=== PATIENT | male | born 1940 ===

== ENCOUNTER 2017-12-09 06:45 | Day surgery (SDC) | payer MEDICARE ==
--- NOTE | 2017-12-05 19:15 | Pre-op HX & Phy Repo 2 SIG ---
DATE OF ADMISSION: 12/09/2017 DATE OF SURGERY: 12/09/2017 PREOPERATIVE DIAGNOSIS: Dense nonclearing vitreous hemorrhage, left eye. BRIEF NOTE: This is the first [place] retinal admission for this patient, who is a very kind 77-year-old man with a long history of diabetic retinopathy. He complained of loss of vision in the left eye over a month ago and was found to have a very dense vitreous hemorrhage, which has failed to clear. He is admitted for surgery. PAST OCULAR HISTORY: Remarkable for cataract surgery done in both eyes previously. He also has a history of prior panretinal laser. A single Avastin injection was done in the left. PAST MEDICAL HISTORY: Remarkable for diabetes and hypertension as well as elevated cholesterol, diagnosed around 2001. MEDICATIONS: He is maintained on oral medications for these conditions. ALLERGIES: He has no allergies. PHYSICAL EXAMINATION: Best vision at the time of admission was 20/80, -2 in the right eye and light perception with projection in the left. The pressures were 19 and 16. The anterior segments were quiet in either eye. Posterior chamber lenses were seen bilaterally with no rubeosis. Fundus exam of the right eye showed mild pallor of the optic nerve. There was widespread panretinal laser photocoagulation. Mild diabetic maculopathy was noted. The left fundus showed a very dense vitreous hemorrhage. Ultrasonography showed the retina to be flat. General physical examination be done by Dr. Mcfarland. ASSESSMENT: Vitreous hemorrhage, left eye. PLAN: The plan is to perform a pars plana vitrectomy with membrane dissection, endolaser, and Avastin injection on the left. The risks and benefits of surgery gone over with the patient with potential infection, hemorrhage, glaucoma, remote possibility of loss of the eye. The risk of anesthesia was discussed. The patient understands and consents to the surgery, which will be performed on Saturday. Alex Farmer M.D. DR: JAZMYN JOB#: [id number] CC: ALMA
[2017-12-09] VITALS (9 sets, daily range): BP systolic 104–177; BP diastolic 52–84
[~2017-12-09] VITALS: Ht 162.6 cm; Wt 81.6 kg
--- NOTE | 2017-12-09 06:26 | Pre-Procedure Note/Attestation ---
Pre-Procedure Note/Attestation Complete Prior to Procedure Planned Procedure: left Procedure Narrative: PPV, membrane peel, endolaser, Kenalog injection, Avastin injection Left eye Indications for Procedure Pre-Operative Diagnosis: Dense vitreous hemorrhage Left eye Attestation I attest that I discussed the nature of the procedure; its benefits; risks and complications; and alternatives (and the risks and benefits of such alternatives ), prior to the procedure, with the patient (or the patient's legal outbound telemarketing representative). I attest that, if there was a reasonable possibility of needing a blood transfusion, the patient (or the patient's legal outbound telemarketing representative) was given the [facility] standardized written summary, pursuant to the Casey Rae Blood Safety Act ([place] Health and Safety Code # 1645, as amended). I attest that I re-evaluated the patient just prior to the surgery and that there has been no change in the patient's H&P, except as documented below: TJ CASTRO Dec 09, 2017 06:26
[~2017-12-09 06:45] MED LIST: Alfentanil 2ml Inj ONE; Norco 5mg/325mg tab ORAL PRN; Propofol 200mg/20ml IV ONE
[2017-12-09] MEDS: Phenylephrine 2.5% Op 2ml Soln LEFT EYE SCH ×3 (07:11→07:24)
[2017-12-09] MEDS: Flurbiprofen 0.03% Opth Sol 2.5ml LEFT EYE SCH ×3 (07:11→07:24)
[2017-12-09] MEDS: Cyclopentolate 1% Opth Sol 2ml LEFT EYE SCH ×3 (07:11→07:24)
[2017-12-09] MEDS: Vigamox Opth Soln 3ml LEFT EYE SCH ×3 (07:11→07:24)
[2017-12-09] MEDS ORDERED: EPINEPHrine 1mg/1ml Amp ONE (07:13)
[2017-12-09] MEDS ORDERED: Pred Forte 1% Opth Susp 1ml ONE (07:13)
[2017-12-09] MEDS ORDERED: Dexamethasone 4mg/ml vial ONE (07:13)
[2017-12-09] MEDS ORDERED: Kenalog-10 5ml Inj ONE (07:13)
[2017-12-09] MEDS ORDERED: Lidocaine 2% MPF 5ml Vial INJ ONE (07:13)
[2017-12-09] MEDS ORDERED: Kenalog-40 1ml Vial ONE (07:13)
[2017-12-09] MEDS ORDERED: BSS 15ml BTL ONE (07:14)
[2017-12-09] MEDS ORDERED: Povidone-Iodine 5% opth solution ONE (07:14)
[2017-12-09] MEDS ORDERED: BSS 500ml btl ONE (07:14)
[2017-12-09] MEDS ORDERED: Tetracaine 0.5% Opth 4ml Soln ONE (07:14)
[2017-12-09] MEDS ORDERED: Sodium Hyaluronate 10 mg/ml 0.85ml ONE (07:15)
[2017-12-09] MEDS ORDERED: Bupivacaine 0.75% 30ml vial INJ ONE (07:15)
[2017-12-09] MEDS ORDERED: TERAZOSIN HCL1 MG ORAL (07:21)
[2017-12-09] MEDS ORDERED: NAPROXEN250 M1 PO (07:21)
[2017-12-09] MEDS ORDERED: BENICAR5 MG ORAL (07:21)
[2017-12-09] MEDS ORDERED: CELEBREX200 MG ORAL (07:21)
[2017-12-09] MEDS ORDERED: PENTOXIFYLLINE400 MG ORAL (07:21)
[2017-12-09] MEDS ORDERED: Avastin 10mg Inj IVITRE SCH (07:30)
[2017-12-09 07:31] LABS: BASOPHILS % (AUTO) 1.3 % (0.0-2.0); EOSINOPHILS % (AUTO) 2.5 % (0.0-3.0); HEMATOCRIT 42.9 % (42.0-52.0); LYMPHOCYTES % (AUTO) 23.8 % (20.0-45.0); MEAN CORPUSCULAR VOLUME 93 FL (80-99); MONOCYTES % (AUTO) 7.9 % (1.0-10.0); NEUTROPHILS % (AUTO) 64.5 % (45.0-75.0); PLATELET COUNT 153 K/UL (150-450); RED CELL DISTRIBUTION WIDTH 12.1 % (11.6-14.8)
[2017-12-09] MEDS ORDERED: NOVOLOG100 UNIT/3 SUBQ ×2 (07:33)
[2017-12-09] MEDS ORDERED: Maxitrol Opth Oint 3.5gm ONE (07:36)
[2017-12-09] MEDS ORDERED: Midazolam 2mg/2ml Inj ONE (07:50)
[2017-12-09 07:56] LABS: ANION GAP 8 mmol/L (5-15); BLOOD UREA NITROGEN 22 mg/dL (7-18); CARBON DIOXIDE 25 MMOL/L (21-32); CHLORIDE 102 MMOL/L (98-107); CREATININE 1.3 MG/DL (0.55-1.30); POTASSIUM 4.3 MMOL/L (3.5-5.1); SODIUM 135 MMOL/L (136-145)
[2017-12-09] MEDS ORDERED: LR 1000ml 1,000 ML IVLG SCH (07:58)
--- NOTE | 2017-12-09 07:59 | Anethesia Preoperative Eval ---
Anesthesia Pre-op PMH/ROS General Date of Evaluation: Dec 09, 2017 Time of Evaluation: 07:51 Anesthesiologist: Marzena ASA Score: ASA 3 Mallampati Score Class I : Soft palate, uvula, fauces, pillars visible Class II: Soft palate, uvula, fauces visible Class III: Soft palate, base of uvula visible Class IV: Only hard plate visible Mallampati Classification: Class III Surgeon: Marleny Diagnosis: Vitreous Hemorrhage OS Surgical Procedure: Vitrectomy OS Anesthesia History: none Family History: no anesthesia problems Allergies: Coded Allergies: No Known Allergies (Unverified , 12/06/17) Medications: see eMAR Past Medical History Cardiovascular: Reports: HTN Endocrine: Reports: DM HEENT: Reports: cataract (L), cataract (R) Other: obesity - BMI 32 Anesthesia Pre-op Phys. Exam Physician Exam Last Vital Signs Date Time Temp Pulse Resp B/P (MAP) Pulse Ox O2 Delivery O2 Flow Rate FiO2 12/09/17 07:23 97.6 81 20 177/84 99 Room Air 97.6 Constitutional: NAD Neurologic: CN 2-12 intact Cardiovascular: RRR Respiratory: CTA Gastrointestinal: S/NT/ND Airway Exam Mallampati Score: Class III MO: limited ROM: limited Teeth: missing, intact Anesthesia Pre-op A/P Labs Hematology Test 12/09/17 07:05 White Blood Count 7.0 K/UL (4.8-10.8) Red Blood Count 4.60 M/UL (4.70-6.10) L Hemoglobin 15.0 G/DL (14.2-18.0) Hematocrit 42.9 % (42.0-52.0) Mean Corpuscular Volume 93 FL (80-99) Mean Corpuscular Hemoglobin 32.7 PG (27.0-31.0) H Mean Corpuscular Hemoglobin Concent 35.1 G/DL (32.0-36.0) Red Cell Distribution Width 12.1 % (11.6-14.8) Platelet Count 153 K/UL (150-450) Mean Platelet Volume 7.7 FL (6.5-10.1) Neutrophils (%) (Auto) 64.5 % (45.0-75.0) Lymphocytes (%) (Auto) 23.8 % (20.0-45.0) Monocytes (%) (Auto) 7.9 % (1.0-10.0) Eosinophils (%) (Auto) 2.5 % (0.0-3.0) Basophils (%) (Auto) 1.3 % (0.0-2.0) Chemistry Test 12/09/17 07:05 Sodium Level Pending Potassium Level Pending Chloride Level Pending Carbon Dioxide Level Pending Blood Urea Nitrogen Pending Creatinine Pending Estimat Glomerular Filtration Rate Pending Glucose Level Pending Calcium Level Pending Risk Assessment & Plan Assessment: ASA 3 Plan: GA Status Change Before Surgery: Francesco Steele MD Dec 09, 2017 07:59
[2017-12-09] MEDS ORDERED: Hydromorphone 0.5mg/0.5ml inj IVP PRN (08:00)
[2017-12-09] MEDS ORDERED: LORazepam Inj 2mg/ml 1ml IV PRN (08:00)
[2017-12-09] MEDS ORDERED: Metoclopramide 10mg/2ml Inj IVP PRN (08:00)
[2017-12-09] MEDS ORDERED: Sterile Water For Irrig 2000ml IRRIG ONE (08:00)
[2017-12-09] MEDS ORDERED: Labetalol 5mg/ml 20ml vial IV PRN (08:00)
[2017-12-09] MEDS ORDERED: oxyCODONE HCL/Acetaminophen 5/325mg ORAL PRN (08:00)
[2017-12-09] MEDS ORDERED: Atropine Inj 1mg/10ml Syr IV PRN (08:00)
[2017-12-09] MEDS ORDERED: HYDROcodone/Acetamin 7.5/325 tab ORAL PRN (08:00)
[2017-12-09] MEDS ORDERED: NS Irrig 1000ml ONE (08:00)
[2017-12-09] MEDS ORDERED: fentaNYL 100 mcg/2 mL IV PRN (08:00)
[2017-12-09] MEDS ORDERED: LR 1000ml ONE (08:00)
[2017-12-09] MEDS ORDERED: Midazolam 2mg/2ml Inj IVP PRN (08:00)
[2017-12-09] MEDS ORDERED: Norco 5mg/325mg tab ORAL PRN (08:00)
[2017-12-09] MEDS ORDERED: DiphenhydrAMINE 50mg/ml Inj IVP PRN (08:00)
--- NOTE | 2017-12-09 08:23 | Immediate Post-Op Evaluation ---
Immediate Post-Op Evalulation Immediate Post-Op Evalulation Procedure: Vitrectomy OS Date of Evaluation: Dec 09, 2017 Time of Evaluation: 09:12 IV Fluids: 500 LR Blood Products: 0 Estimated Blood Loss: 1 Urinary Output: 0 Blood Pressure Systolic: 143 Blood Pressure Diastolic: 81 Pulse Rate: 69 Respiratory Rate: 16 O2 Sat by Pulse Oximetry: 99 Temperature (Fahrenheit): 98.4 Pain Score (1-10): 1 Nausea: No Vomiting: No Complications 0 Patient Status: awake, reacts, patent, none Hydration Status: adequate Francesco Ivan MD Dec 09, 2017 08:23
--- NOTE | 2017-12-09 08:25 | 48 Hour Post Anesthesia Eval ---
Post Anesthesia Evaluation Procedure: Vitrectomy OS Date of Evaluation: Dec 09, 2017 Time of Evaluation: 11:22 Blood Pressure Systolic: 141 0: 76 Pulse Rate: 67 Respiratory Rate: 18 Temperature (Fahrenheit): 98.4 O2 Sat by Pulse Oximetry: 100 Airway: patent Nausea: No Vomiting: No Pain Intensity: 1 Hydration Status: adequate Cardiopulmonary Status: Stable Mental Status/LOC: patient returned to baseline Follow-up Care/Observations: 0 Post-Anesthesia Complications: 0 Follow-up care needed: ready to discharge Francesco Ivan MD Dec 09, 2017 08:25
--- NOTE | 2017-12-09 08:59 | Brief Operative Note ---
Immediate Post Operative Note Operative Note Chief Complaint: Clouds in vision Left eye Pre-op Diagnosis: Dense vitreous hemorrhage Left eye Procedure: PPV, Endolaser 1027spots, Avastin injection 1.25mg Left eye Post-op Diagnosis: same as pre-op Surgeon: zachariah Anesthesiologist: Marzena Anesthesia: MAC Specimen: none Complications: none Condition: stable Fluids: Per Anesthesia Estimated Blood Loss: none Drains: none Implant(s) used?: No TJ CASTRO Dec 09, 2017 08:59
[2017-12-09] MEDS ORDERED: Pred Forte 1% Opth Susp 1ml LEFT EYE SCH (10:00)
--- NOTE | 2017-12-09 12:45 | Operative Note - Dictated ---
DATE OF OPERATION: 12/09/2017 PREOPERATIVE DIAGNOSIS: Dense vitreous hemorrhage, left eye. POSTOPERATIVE DIAGNOSIS: Dense vitreous hemorrhage, left eye. PROCEDURES: 1. Pars plana vitrectomy. 2. Endolaser. 3. Avastin injection, left eye. SURGEON: Alex Farmer MD MUSIC WRITER: None. ANESTHESIA: Local with sedation. ANESTHESIOLOGIST: Francesco Ivan M.D. JUSTIFICATION FOR SURGERY: This 77-year-old gentleman with a history of diabetes developed a dense nonclearing vitreous hemorrhage in the left eye. BRIEF NOTE: The patient was brought to the operating room, placed on OR table in supine position. After a time-out was performed and agreed upon by the staff, and initial monitoring secured by Dr. Ivan, retrobulbar and Van Lint blocks were given in the standard way. When the blocks taken effect, he was prepped and draped in normal manner. A lid speculum was inserted into the left eye. Using a 23-gauge trocar system, cannulas were placed in all except inferonasal quadrant. Infusion secured inferotemporally. Vitrectomy was begun posterior to the lens. A central core vitrectomy was done followed by peripheral vitrectomy leaving a small vitreous skirt. A very dense vitreous blood was noted covering the posterior pole. Gentle suction was used to evacuate the hemorrhage. No significant traction was seen except for out nasally, which was well surrounded by laser. This was left alone. There appeared to be fairly light laser in the far periphery. For this reason, the Endolaser probe was brought into the eye and a power of 0.3 peoples and a duration of 0.2 seconds, a total of 1027 lesions were applied in the far periphery and 2 other areas of lightly treated retina. This went without complication. Scleral depression was performed under low perfusion pressure and no peripheral breaks, tears, or detachments were seen. The 2 superior cannulas were then removed from the eye and the sclerotomy was closed with a single throw of 8-0 Vicryl. Avastin, 1.25 mg was injected through the inferotemporal cannula, once the infusion line was removed. The eye was then reinflated and this cannula was also removed and sclerotomy similarly closed. Subconjunctival Decadron and gentamicin were injected inferiorly and Maxitrol ointment, atropine drops, prednisolone drops, and Vigamox drops were instilled. The eye was patched and shielded. The patient taken to recovery in excellent condition. There were no complications. Alex Farmer M.D. DR: SUSAN JOB#: [id number] CC:
== END 2017-12-09 10:20 | disposition home or self-care (01) ==
LOC: SUR 06:45
DX: H43.12 Vitreous hemorrhage, left eye (principal); E11.9 Type 2 diabetes mellitus without complications; I10 Essential (primary) hypertension; E78.00 Pure hypercholesterolemia, unspecified; M19.90 Unspecified osteoarthritis, unspecified site; Z79.82 Long term (current) use of aspirin
CPT/HCPCS: 36415; 67039; 80048; 82962; 85025; 93005; J0171; J0360; J1100; J2250; J2704; J3470; J3490; J7120; J9035; 94003; 94150